=== PATIENT | female | born 1935 | race Caucasian/White ===

== ENCOUNTER 2023-08-29 06:02 | Day surgery (SDC) | payer MEDICARE, OTHER, SELFPAY ==
[2023-08-29] VITALS (14 sets, daily range): BP systolic 105–155; BP diastolic 42–62; PULSE 58–73; RESP 13–19; TEMP 35.7–36.7; O2SAT 93–96; BMI 31.8
[2023-08-29] MEDS: ACETAMINOPHEN 500 MG TABLET 1000 MG PO (06:09)
[2023-08-29] MEDS: LACTATED RINGERS 1000 ML 1,000 ML 100 ML IV (06:20)
[2023-08-29] MEDS: SODIUM CHLORIDE 0.9 % (FLUSH) 10 ML SYRINGE IVF (06:20)
[2023-08-29] MEDS: OXYCODONE (CR) 10 MG TAB.ER.12H PO (06:40)
--- NOTE | 2023-08-29 07:13 | W.PM.H&PU ---
History & Physical Update History & Physical Update H&P Reviewed and patient assessed: No changes noted
[2023-08-29] MEDS: TRANEXAMIC ACID 100 MG/ML INJ 1000 MG IV (07:39)
[2023-08-29] MEDS: CEFAZOLIN 2 GM in 0.9 % SODIUM CHLORIDE Mini-bag 100 ML IVPB (07:39)
[2023-08-29] MEDS: ROPIVACAINE 0.5% 30 ML 150 MG INJECTION (08:17)
--- NOTE | 2023-08-29 08:26 | P.ANES_ITS ---
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
--- NOTE | 2023-08-29 09:35 | P.ORPRC_ITS ---
Procedure Note Date of procedure: 08/29/23 Procedure: PREOPERATIVE DIAGNOSIS: 1. Right knee patellar clunk following prior TKA POSTOPERATIVE DIAGNOSIS: 1. Right knee patellar clunk following prior TKA PROCEDURE: 1. Right knee arthroscopic extensive excisional debridement including debridement of superior pole patella patellar clunk scar, medial and lateral gutter scar tissue, anterior fat pad scar tissue, etc. SURGEON: Williams Marie M.D. MATERIAL DAMAGE APPRAISER: FAHAD Larose. Of note, an construction assistant was critical for this case to aid in patient positioning, knee manipulation, instrument exchange, and closure. 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 While their pain from the preoperative arthritic state has improved, they are now battled some patellar clunk phenomenon in the postoperative time. Initially this was simply an audible noise/palpable feeling, but is become more of a symptomatic process. As such, knee arthroscopy for debridement was recommended. FINDINGS: TKA implants all stable. No evidence of significant scratching or pathology. Regarding the scar, there was abundant scar in the suprapatellar pouch especially at the superior pole patella consistent with patellar clunk. There is also significant scar bands across the medial and lateral gutters especially near the tibial tray overlying the polyethylene component on the edges. There was a bony fragment along the lateral joint line which was also debrided from the lateral synovial tissue. All this was excisionally debrided with a torpedo shaver. DESCRIPTION OF PROCEDURE: After a thorough discussion of risks, benefits, and alternatives, the patient was brought to the operating room and placed upon the operating table. Induction of anesthesia was undertaken as previously noted. 1 g IV Ancef was administered within 1 hr of incision preoperatively. Appropriate time-out was performed identifying proper patient, site, and procedure. The right lower extremity was prepped and draped in the appropriate sterile fashion using ChloraPrep. The limb was exsanguinated and tourniquet inflated. Anterolateral and anteromedial portals were established with an 11 blade, and a diagnostic arthroscopy was performed. This identified the findings as noted above. Following the diagnostic arthroscopy, an extensive excisional debridement was performed with the combination arthroscopic basket, torpedo shaver, Excalibur shaver, and dissect tear. Multiple Gilberto were needed as the blades broke against the dense fibrous tissue. Following the debridement, the knee was placed through range of motion found have no significant crepitation. At this stage, the shaver was reinserted into the suprapatellar pouch and all remaining debris was evacuated. Instruments were removed, excess fluid was drained, and closure performed with 4-0 Monocryl with Steri-Strips. Dressings were applied, the tourniquet deflated, and the patient was awoken from anesthesia and transferred to the PACU in stable condition. PLAN: 1. Weightbear as tolerated operative extremity. Crutch / walker ambulation assistance PRN. 2. Ice, acetominophen and/or ibuprofen, and oxycodone for pain as needed. 3. Knee range of motion and quad sets/straight leg raise regularly 4. Follow up with PA visit in 1-2 weeks for a wound check and possibly to initiate physical therapy.
--- NOTE | 2023-08-29 10:19 | W.ANESCHARGE ---
Anesthesia Charges Start Date/Time Anesthesia Start Date: 08/29/23 Anesthesia Start Time: 07:13 Stop Date/Time Anesthesia Stop Date: 08/29/23 Anesthesia Stop Time: 08:26 Summary Extremes of Age - Over 70 or under 1: MDA
== END 2023-08-29 10:04 | disposition home or self-care (01) ==
PROVIDERS: PCP Family Medicine; Visit Provider Orthopaedic Surgery Sports Medicine
PROC: (CPT 29870; principal; 2023-08-29 07:15)
DX: M25.861 Other specified joint disorders, right knee (principal); Z96.651 Presence of right artificial knee joint
CPT/HCPCS: 29877; 01400; 99100; A9270; J0690; J2250; J2405; J2704; J2795; J3010; J7120